=== PATIENT | female | born 1955 | race Caucasian/White ===

== ENCOUNTER 2022-07-14 09:00 | Outpatient (RCR) | payer OTHER, SELFPAY | END 2022-10-22 13:20 | disposition home or self-care (01) | PROVIDERS: PCP Family Medicine; Visit Provider Physician Assistant Medical | DX: M25.521 Pain in right elbow (principal); Z51.89 Encounter for other specified aftercare | CPT/HCPCS: 97035; 97110; 97140; X5282 ==

== ENCOUNTER 2025-03-10 18:51 | Outpatient (CLI) | payer OTHER, SELFPAY | END 2025-03-10 18:52 | disposition home or self-care (01) | PROVIDERS: PCP Student in an Organized Health Care Education/Training Program; Visit Provider Physician Assistant Medical | DX: I16.0 Hypertensive urgency (principal) | CPT/HCPCS: 84443 ==